=== PATIENT | male | born 1965 | race Caucasian/White ===

== ENCOUNTER 2020-07-21 10:46 | Emergency (ER) | payer MEDICAID, SELFPAY ==
[2020-07-21 11:23] VITALS: BP 113/65; PULSE 72; RESP 18; TEMP 36.9; O2SAT 97; BMI 35.9
--- NOTE | 2020-07-21 11:38 | XR_ITS ---
EXAMINATION: XR CALCANEUS, RIGHT CLINICAL INFORMATION: Status post puncture wound COMPARISON: None TECHNIQUE: Lateral and axial views of the right calcaneus were obtained. FINDINGS: There is normal alignment without acute fracture or dislocation. Joint spaces are maintained. Small plantar calcaneal spur. No radiopaque foreign body is seen within the soft tissues. XR/XR calcaneus RT min 2V IMPRESSION: No acute bony abnormality to the right calcaneus. No radiopaque foreign body.
--- NOTE | 2020-07-21 11:44 | ED.LOWEXIN ---
HPI - Extremity Injury (Lower) General Chief Complaint: Extremity Injury, Lower Stated Complaint: R FOOT PW METAL SHAYY Time Seen by Provider: 07/21/20 11:32 Source: patient Mode of arrival: ambulatory Limitations: no limitations History of Present Illness HPI Narrative: 55 y/o male presenting with right heel pain after he accidentally stepped on a metal shayy yesterday that went through his sneaker and punctured his foot. He states there was immediate bleeding and pain but he was able to walk on it. He cleaned it with soap and water. He states this morning he hand increasing tenderness and difficulty walking. No fever, chills, numbness, drainage of pus, or red streaking. Related Data Previous Rx's Medication Instructions Recorded levofloxacin 500 mg PO DAILY 7 Days #7 tab 07/21/20 Allergies Allergy/AdvReac Type Severity Reaction Status Date / Time lisinopril [LISINOPRIL] Allergy Severe COUGH Unverified 05/23/20 14:51 penicillin V Allergy Unknown Hives Unverified 07/21/20 11:26 Penicillins Allergy Unknown HIVES Unverified 05/23/20 14:51 Fwsmjbb-Run-Ghl Reductase AdvReac Severe MUSCLE Unverified 05/23/20 14:51 Inhibitor ACHES [[id number] REDUCTASE INHIBITOR] Statins Support Allergy Intermediate Muscle Uncoded 07/21/20 11:26 cramps statins- has tried them all Allergy Unknown muscle Uncoded 03/06/19 00:00 aches Review of Systems Review of Systems: Constitutional: No Fever, No Chills Cardiovascular: No Chest Pain, No SOB, No Orthopnea, No Edema Respiratory: No Cough, No Sputum Gastrointestinal: No Nausea, No Vomiting, No Diarrhea, No abdominal Pain Musculoskeletal: + joint pain, No Myalgias Skin: + Skin Lesions, No rash Neuro: No Weakness, No Numbness PMFSH Past Medical History Attestation statement: The following information was validated with the patient. Medical History CHF (congestive heart failure) High blood pressure Social History Social History Advance Directives: No Advance Directives Information Provided: Yes Physical Exam Vital Signs: Vital Signs: Last Vital Signs Temp 98.4 F 07/21/20 11:23 Pulse 72 07/21/20 11:23 Resp 18 07/21/20 11:23 BP 113/65 07/21/20 11:23 Pulse Ox 97 07/21/20 11:23 Body Mass Index 35.9 Appearance: Awake, alert, no distress. Neck: Normal inspection. Respiratory: No respiratory distress. Skin: Skin warm and dry. Normal skin color. Normal skin turgor. No rashes. Extremities: right heel with 0.5 cm puncture wound with mild surrounding erythema, no warmth or drainage. tender to touch. no palpable foreign body. No erythema or streaking of the foot Neuro: Oriented X 3. No motor deficit. No sensory deficit. Course Course Course Narrative: 55 y/p male with puncture wound to the right heel. Need to r/o foreign body retention or fracture of the calcaneous. Concern for evolving infection. Levaquin given now to cover Pseudomonas given it is a plantar wound through a shoe. Reevaluation(s) Reevaluation #1: XR is negative. Would cleaned with hydrgen perioxide and gently explored. Bacitracin applied and sterile dressing. Wound care discussed and signs of infection. He will f/u with PCP this week. Stable for d/c with course of Levaquin. Discharge Plan Discharge Clinical Impression: Puncture wound Patient Disposition: Home, Self-Care Instructions: Puncture Wound in the Foot (ED) Additional Instructions: Your x-ray today of your foot was normal. You were given a dose of an antibiotic to help treat infection - fill your prescription and start taking tomorrow. Take the entire course. Keep wound clean and dry. Avoid wearing shoes until improved. Use bacitracin or Neosporin twice per day. Use warm water soaks with gentle soap or Epsom salts for discomfort. Stay off your foot if pain walking. If pain or redness worsen despite antibiotics come back to the ER for further evaluation of possible spreading infection. Follow up with your Primary Care doctor this week. Prescriptions: New levofloxacin 500 mg tablet 500 mg PO DAILY 7 Days Qty: 7 RF: 0
[2020-07-21] MEDS: levoFLOXacin 500 MG TABLET PO (12:01)
== END 2020-07-21 12:49 | disposition home or self-care (01) ==
PROVIDERS: Emergency Provider Emergency Medicine
DX: S91.331A Puncture wound without foreign body, right foot, initial encounter (principal); S90.811A Abrasion, right foot, initial encounter; M79.671 Pain in right foot; W26.8XXA Contact with other sharp object(s), not elsewhere classified, initial encounter; Y93.01 Activity, walking, marching and hiking; Y92.9 Unspecified place or not applicable; Y99.9 Unspecified external cause status; Z79.899 Other long term (current) drug therapy; Z23 Encounter for immunization
CPT/HCPCS: 73650; 90471; 90715; 99282; 99284

== ENCOUNTER 2023-07-19 07:19 | Day surgery (SDC) | payer MEDICAID, SELFPAY ==
[2023-07-12 13:22] VITALS: BMI 36.3
--- NOTE | 2023-07-16 07:54 | MHC.SHP ---
Pre-Procedural Eval Section A Date of Service: 07/16/23 The patient is an INPATIENT: No Changes since office visit: No Cold of Flu in the past 2 weeks, No New Medical Problems, No Changes in Medication and No Patient answered all questions The History & Physical has been completed within 30 days and I have reviewed it.: Yes Section B Chief Complaint: Age-related nuclear cataract, right eye Allergies: Allergies Allergy/AdvReac Type Severity Reaction Status Date / Time Penicillins Allergy Intermediate HIVES Verified 07/01/23 08:17 lisinopril [LISINOPRIL] AdvReac Severe COUGH Verified 07/01/23 08:17 Cuswchf-FAP-FgL Reductase AdvReac Severe MUSCLE Verified 07/01/23 08:17 Inhibitor ACHES [[id number] REDUCTASE INHIBITOR] Plan Diagnosis/Plan: Unchanged I have reviewed the history and physical and performed a pertinent physical examination on my patient. No changes have occurred unless specified. Time Spent With Patient Time: Total time managing care of this patient today ____ minutes.
--- NOTE | 2023-07-16 07:56 | MHC.SHP ---
Pre-Procedural Eval Section A Date of Service: 07/16/23 The patient is an INPATIENT: No Changes since office visit: No Cold of Flu in the past 2 weeks, No New Medical Problems, No Changes in Medication and No Patient answered all questions The History & Physical has been completed within 30 days and I have reviewed it.: Yes Section B Chief Complaint: Age-related nuclear cataract, right eye Allergies: Allergies Allergy/AdvReac Type Severity Reaction Status Date / Time Penicillins Allergy Intermediate HIVES Verified 07/01/23 08:17 lisinopril [LISINOPRIL] AdvReac Severe COUGH Verified 07/01/23 08:17 Rtehwhh-HAR-GkA Reductase AdvReac Severe MUSCLE Verified 07/01/23 08:17 Inhibitor ACHES [[id number]-[id number]-AOF REDUCTASE INHIBITOR] Plan Diagnosis/Plan: Unchanged I have reviewed the history and physical and performed a pertinent physical examination on my patient. No changes have occurred unless specified. Time Spent With Patient Time: Total time managing care of this patient today ____ minutes.
[2023-07-19] MEDS: Lactated Ringers 500 ML 50 ML IV (08:15)
[2023-07-19] MEDS: Phenylephrine HCL 2.5% Oph SoL 2 ML BOTTLE 1 DROP EYE-RIGHT ×3 (08:16→08:23)
[2023-07-19] MEDS: Ketorolac Tromethamine 0.5% Op 5 ML DROPS 1 DROP EYE-RIGHT ×3 (08:16→08:23)
[2023-07-19] MEDS: Tropicamide 1 % Ophth Sol 3 ML BTL 1 DROP EYE-RIGHT ×3 (08:16→08:23)
[2023-07-19] MEDS: Tetracaine HCl/PF 0.5% Oph Sol 4 ML DROPS 1 DROP EYE-RIGHT (08:16)
[2023-07-19] MEDS: Cyclopentolate 1 % Ophth Sol 2 ML DRPBTL 1 DROP EYE-RIGHT ×3 (08:16→08:23)
[2023-07-19 08:26] VITALS: BP 137/72; PULSE 66; RESP 18; TEMP 36.6; O2SAT 95
--- NOTE | 2023-07-19 08:26 | PC.NURSE ---
IV inerted by shivam tristan rn
--- NOTE | 2023-07-19 08:28 | HO.ANESPROP2 ---
[facility] Past Medical History Medical History Tracheostomy in place Sleep apnea Hx of retinal detachment Post-operative nausea and vomiting Myocardial infarction Elevated cholesterol GERD (gastroesophageal reflux disease) Diabetes Back pain Depression CAD (coronary artery disease) High blood pressure CHF (congestive heart failure) Surgical History Surgical History Hx of tonsillectomy Hx of shoulder surgery H/O colonoscopy Hx of nasal septoplasty Hx of cardiac catheterization Hx of tracheostomy History of Problems with Anesthesia: No Social History Social History Are you a primary healthcare financial analyst to a significant other at home: No Do you presently have visiting nurse or other home services: No Patient Tobacco Use Status: Never used Tobacco Use of substances other than those prescribed or required for medical reasons: No Have you been hit, kicked, punched, or otherwise hurt by someone within the past year? If so, by whom?: No Are you DNR?: No Advance Directives: No Advance Directives Information Provided: Yes (brochure mailed) Advance Directives on File: No Recently lost weight without trying: No Eating poorly because of decreased appetite: No Nutrition Risks: No Nutritional Risk Poor oral hygiene: No (upper front teeth weak but not loose) Meds Allergies Allergy/AdvReac Type Severity Reaction Status Date / Time Penicillins Allergy Intermediate HIVES Verified 07/19/23 08:29 lisinopril [LISINOPRIL] AdvReac Severe COUGH Verified 07/19/23 08:29 Mdsbhhp-IEC-ElK Reductase AdvReac Severe MUSCLE Verified 07/19/23 08:29 Inhibitor ACHES [[id number]-AOX-FBZ REDUCTASE INHIBITOR] Active Medications: Current Medications Lactated Ringer's (Lr) 500 mls @ 50 mls/hr IV .Q10H KWESI Stop: 07/19/23 16:59 Last Admin: 07/19/23 08:15 Dose: 50 mls/hr Lactated Ringer's (Lr) 500 mls @ 50 mls/hr IVCONT .Q10H KWESI Povidone Iodine (Povidone Iodine 5 % Ophth Soln 30 Ml Bottle) 1 appl EYE-RIGHT PREOP PRN PRN Reason: Pre-Op Surgical Implant Prophy Home Medications Medication Instructions Recorded Confirmed Last Taken Type ascorbic acid (vitamin C) 500 mg 500 mg PO BID 07/12/23 07/12/23 Unknown History tablet (Vitamin C) aspirin 81 mg tablet,delayed 81 mg PO DAILY 07/12/23 07/12/23 07/18/23 History release cholecalciferol (vitamin D3) 25 25 mcg PO DAILY 07/12/23 07/12/23 Unknown History mcg (1,000 unit) capsule (Vitamin D3) clopidogrel 75 mg tablet 75 mg PO DAILY 07/12/23 07/12/23 07/18/23 History empagliflozin 10 mg tablet 10 mg PO DAILY 07/12/23 07/12/23 Unknown History (Jardiance) evolocumab 140 mg/mL subcutaneous 140 mg subcut Q2W 07/12/23 07/12/23 Unknown History pen injector (Apolinar Torres) furosemide 20 mg tablet 20 mg PO DAILY 07/12/23 07/12/23 Unknown History hydroxyzine HCl 25 mg tablet 25 mg PO DAILY 07/12/23 07/12/23 Unknown History isosorbide mononitrate 30 mg 30 mg PO DAILY 07/12/23 07/12/23 07/19/23 History tablet,extended release 24 hr labetalol 200 mg tablet 200 mg PO BID 07/12/23 07/12/23 07/19/23 History metformin 500 mg tablet 500 mg PO DAILY 07/12/23 07/12/23 Unknown History nitroglycerin 0.4 mg sublingual 0.4 mg sublingual NEEDED 07/12/23 07/12/23 Unknown History tablet omega-3s 350 ub-knz-wvi-other 1 cap PO DAILY 07/12/23 07/12/23 Unknown History yyvrm0m-rcei oil 600 mg capsule (Fish Oil) timolol maleate 0.5 % eye drops 1 - 2 drp ophthalmic-Right QAM 07/12/23 07/12/23 Unknown History valsartan 80 mg tablet 80 mg PO DAILY 07/12/23 07/12/23 Unknown History vitamin B complex 1 cap PO DAILY 07/12/23 07/12/23 Unknown History Exam Exam Date and Time: July 19, 202328 Height,Weight and Vital Signs: Height 6 ft Weight 121.563 kg Last Vital Signs Temp 97.9 F 07/19/23 08:26 Pulse 66 07/19/23 08:26 Resp 18 07/19/23 08:26 BP 137/72 07/19/23 08:26 Pulse Ox 95 07/19/23 08:26 O2 Del Method Room Air 07/19/23 08:26 Airway Mallampati Class: IV TM Dist: >3cm Neck ROM: Full Loose/Missing/Broken Teeth: No Heart: RRR Lungs: CTA Assessment and Plan Assessment Anesthesia Assessment: Anesthesia Plan Discussed and Chart Reviewed Final Anesthetic Review History of Problems with Anesthesia: No NPO: Yes ASA Class: IV Final Preanesthetic Review: Meds/Allgs Chart Reviewed, Consent Obtained/Reviewed and Anes Risks/Benef Reviewed Patient Risk: High Procedure Risk: Low Anesthetic Plan Anesthetic Plan: MAC: Disposition: Standard PACU
[2023-07-19 08:40] LABS: Glucose, Whole Blood 127 mg/dL (60-115)
--- NOTE | 2023-07-19 09:30 | HO.PNOPHT ---
Ophthalmology Procedure Procedure Date of Service: 07/19/23 Ophthalmology Viscoelastic: Abbie Husaint Dual Pack Pro Ophthalmology Lenses: [id number] [id number] (16) Procedure Notes: PREOPERATIVE DIAGNOSIS: Decreased visual acuity right eye secondary to cataract POSTOPERATIVE DIAGNOSIS: Same PROCEDURE: Right cataract extraction with intraocular lens insertion SURGEON: Tomas Smart M.D. ANESTHESIA: Topical/MAC ESTIMATED BLOOD LOSS: None COMPLICATIONS: None After obtaining informed consent, the patient was brought to the operating room suite and placed in the supine position. After adequate sedation per anesthesia, topical drops of Tetracaine were given to the right eye. The eye was then prepped and draped in the usual sterile fashion. The operating room microscope was then positioned over the operative eye and a lid speculum placed. A paracentesis was created. Viscoelastic was then instilled into the anterior chamber. A three plane incision was then created temporally, utilizing a 2.85 mm keratome. Capsulotomy forceps were then utilized to create a circular tear capsulotomy. Hydrodissection and hydrodelineation were carried out until adequate mobilization of the nucleus occurred. Phacoemulsification was then utilized to remove the dense central nucleus followed by removal of the cortical material utilizing the automated aspiration irrigation unit. Viscoelastic was instilled into the posterior capsular bag followed by placement of a posterior chamber intraocular lens without difficulty. The residual Viscoelastic was then removed utilizing the automated IA machine. The wound was checked and found to be watertight. The patient tolerated the procedure well and the lid speculum was removed. Intracameral injection of Vigamox 0.1 mL followed by a subtenon injection of Kenalog-40 0.2 mL were administered. The patient will be seen in the a.m.
[2023-07-19 09:51] VITALS: BP 122/65; PULSE 76; RESP 20; TEMP 36.1; O2SAT 96
== END 2023-07-19 10:01 | disposition home or self-care (01) ==
PROVIDERS: Visit Provider Ophthalmology
PROC: (CPT 66985; principal; 2023-07-19 09:40)
DX: H25.11 Age-related nuclear cataract, right eye (principal); H43.11 Vitreous hemorrhage, right eye; H54.7 Unspecified visual loss; H31.001 Unspecified chorioretinal scars, right eye; G47.33 Obstructive sleep apnea (adult) (pediatric); I25.10 Atherosclerotic heart disease of native coronary artery without angina pectoris; Z95.5 Presence of coronary angioplasty implant and graft; I11.0 Hypertensive heart disease with heart failure; I50.9 Heart failure, unspecified; E11.9 Type 2 diabetes mellitus without complications; Z79.84 Long term (current) use of oral hypoglycemic drugs; Z79.82 Long term (current) use of aspirin; Z88.0 Allergy status to penicillin; Z79.899 Other long term (current) drug therapy; Z99.89 Dependence on other enabling machines and devices; Z88.8 Allergy status to other drugs, medicaments and biological substances
CPT/HCPCS: 66984; 82947; J2250; J3301; V2632

== ENCOUNTER 2025-02-12 11:17 | Outpatient (REF) | payer MEDICARE, MEDICAID, SELFPAY ==
[2025-02-12 11:42] VITALS: BP 125/74; PULSE 74; RESP 16; TEMP 36.2; O2SAT 98
[2025-02-12 11:43] VITALS: BMI 35.8
--- OUTSIDE RECORDS SUMMARY | 2025-02-12 12:54 | XMS_ITS | Encounter Summary ---
Author Organization [facility] Address [address] [place] [address] Care Team Providers Care Risk Assessor Name Role Phone Tre Lozano MD Primary Care Provider Encounter Details Date Type Department Care Team (Late st Contact Info) Description 09/29/2022 Orders Only [facility] XRay [address] [place], [place] [id number] Edy Jackson MD [address] [place], [place] [id number] Social History Tobacco Use Types Packs/Day Years Used Date Smoking Tobacco: Never Smokeless Tobacco: Never Alcohol Use Standard Drinks/Week Comments Yes 0 (1 standard drink = 0.6 oz pur e alcohol) few beers per month Sex and Gender Information Value Date Recorded Sex Assigned at Male 01/30/2021 7:51 AM EDT Legal Sex Male 2:40 PM EDT Gender Identity Male 01/30/2021 7:51 AM EDT Sexual Orientation Straight 09/27/2023 7: 54 PM EST documented as of this encounter Plan of Treatment Upcoming Encounters Date Type Department Care Team (Latest Contact Info) Description 03/01/2025 11:15 AM EDT Procedure visit [facility] Audiology [address] [place] [address] Iris Walker AUD, CCC-A [address] [place] [address] 03/07/2025 9:29 AM EDT Hospital Encounter [facility] Heart and Vascular Interventional Lab [address] [place] [address] Sascha Cazares MD [address] [place] [address] Coronary artery disease involving [place] coronary artery of [place] heart, unspecified whether angina present 03/07/2025 9:29 AM EDT - 03/07/2025 10:33 AM EDT Surgery [facility] Inter[facility] [address] [place] [address] Sascha Cazares MD [address] [place] [id number] Coronary angiography 03/07/2025 10:15 AM EDT Appointment [facility] Otolaryngology Clinic [address] [place] [phone] Guitar Player: Kinza Geiger PA [address] [place] [phone] 04/27/2025 11:00 AM EDT Appointment [facility] Building Cardiac Ultrasound [address] [place] [phone] 04/30/2025 1:15 PM EDT Follow-Up [facility] Internal Medicine [facility] [address] [place] [phone] Tre Lozano MD [address] [place] [address] 05/18/2025 1:00 PM EDT Office Visit [facility] Urology Clinic [address] [place] [phone] Guitar Player: Dai Garcia PA [address] [place] [phone] 01/21/2026 11:20 AM EDT Follow-Up [facility] 4th floor Cardiology Medicine [address] [place] [phone] Guitar Player: Sascha Hickey MD [address] [place] [phone] Scheduled Procedures Name Priority Associated Diagnoses Date/Ti me CORONARY INTERVENTION (PCI) Coronary artery disease involving [place] coronary artery of [place] heart, unspecified whether angina present 03/07/2025 9:29 AM EDT documented as of this encounter Visit Diagnoses Not on filedocumented in this encounter Care Teams Risk Assessor Relationship Specialty Start Date End Date Tre Lozano MD [address] [place] [address] PCP - General Internal Medicine 01/20/23 documented as of this encounter
== END 2025-02-12 11:18 | disposition home or self-care (01) ==
LOC: HO.MS 11:17
PROVIDERS: Visit Provider Ophthalmology
PROC: (CPT 66821; principal; 2025-02-12 13:30)
DX: H26.491 Other secondary cataract, right eye (principal)
CPT/HCPCS: 66821